=== PATIENT | male | born 1970 | race Caucasian/White ===

== ENCOUNTER 2017-11-08 12:44 | Emergency (ER) | payer MEDICAID ==
[~2017-11-08] VITALS: Ht 170.2 cm; Wt 87.1 kg
[2017-11-08 13:15] VITALS: BP 149/95
--- NOTE | 2017-11-08 13:24 | NUR ---
PATIENT PRESENTS TO ED WITH C/O LT SIDED /LT UPPER/LOWER EXTREMITIES BURNING SENSATION . PT STATES HE CAN'T FEEL ON HIS LEFT FLANK WHEN TAKING A HOT SHOWER. ALSO C/O OF RT 4TH AND 5 TH DIGIT NUMBNESS;DENIES ANY DIZZINESS/ GRIMALDO;DENIES ANY MEDICAL HX;DENIES N/V/D; SKIN IS PINK/WARM/DRY; AAOX4 WITH EVEN AND STEADY GAIT; LUNGS CLEAR BL; HR EVEN AND REGULAR; PT DENIES ANY FEVER, CP, SOB, OR COUGH AT THIS TIME; PATIENT STATES PAIN OF 8/10 AT THIS TIME; PATIENT POSITIONED FOR COMFORT;ER MD MADE AWARE OF PT STATUS.
[2017-11-08 14:31] LABS: BILIRUBIN,URINE NEGATIVE (NEGATIVE); BLOOD, URINE NEGATIVE (NEGATIVE); LEUKOCYTE ESTERASE ,URINE NEGATIVE (NEGATIVE); NITRITE, URINE NEGATIVE (NEGATIVE); UGLUCOSE NEGATIVE (NEGATIVE)
[2017-11-08 14:36] LABS: APPEARANCE,URINE CLEAR (CLEAR); COLOR,URINE STRAW (YELLOW)
[2017-11-08 14:37] LABS: BARBITURATE, URINE NEG. ng/ml (NEG <=200); BENZODIAZEPINE, URINE NEG. ng/mL (NEG <=200); CANNABINOID, URINE NEG. ng/mL (NEG <=50); COCAINE, URINE NEG. ng/mL (NEG <=300); OPIATE, URINE NEG. ng/mL (NEG <=2000); PHENCYCLIDINE SCREEN,URINE NEG. ng/mL (NEG <=25)
[2017-11-08 14:37] LABS: BASOPHILS # (AUTO) 0.3 K/uL (0.00-0.22); EOSINOPHILS # (AUTO) 0.2 K/uL (0-0.4); HEMATOCRIT 48.6 % (36-52); HEMOGLOBIN 16.5 g/dL (12.0-18.0); LYMPHOCYTES # (AUTO) 1.4 K/uL (2.0-11.5); MEAN CORPUSCULAR HEMOGLOBIN 30 pg (27-31); MEAN CORPUSCULAR HGB CONC 34 g/dL (33-37); MEAN CORPUSCULAR VOLUME 87 fL (80-94); MONOCYTES # (AUTO) 0.8 K/uL (0.8-1.0); NEUTROPHILS # (AUTO) 6.7 K/uL (1.8-7.7); PLATELET COUNT (AUTO) 248 K/uL (140-450); RED BLOOD CELL COUNT(AUTO) 5.57 MIL/uL (4.20-6.10); WHITE BLOOD COUNT (AUTO) 9.4 K/uL (4.8-10.8)
[2017-11-08 14:53] LABS: ANION GAP 13.3 (8-16); CARBON DIOXIDE 27.7 mmol/L (21-32); CREATININE 0.9 mg/dL (0.7-1.3)
[2017-11-08 15:00] LABS: ALBUMIN 3.9 g/dL (3.4-5.0); TOTAL BILIRUBIN 0.2 mg/dL (0.0-1.0)
--- NOTE | 2017-11-08 15:09 | NUR ---
OPTICAL ASSISTANT EVALUATING PT.
[2017-11-08 15:41] VITALS: BP 149/95
--- NOTE | 2017-11-08 15:41 | NUR ---
PT DISCHARGED BY DR CONTRERAS.
== END 2017-11-08 15:41 | disposition home or self-care (01) ==
LOC: MED 12:44
DX: R20.2 Paresthesia of skin (principal)
CPT/HCPCS: 36415; 70450; 71045; 80053; 80305; 81003; 85025; 99285

== ENCOUNTER 2019-12-19 00:15 | Inpatient (IN) | payer MEDICAID ==
[~2019-12-19] VITALS: Ht 172.7 cm; Wt 87.1 kg
[2019-12-19 00:15] VITALS: BP 141/86
--- NOTE | 2019-12-19 00:15 | NUR ---
49 YEAR OLD MALE COMPLAINS OF NONRADIATING CHEST PAIN 8/10 FOR 1 HOUR. PATIENT ALSO STATES SHORTNESS OF BREATHE. LUNGS CTABL, BREATHING EVEN AND UNLABORED, RR 20 SPO2 99%. PATIENT AOX4, SKIN WARM AND DRY. PATIENT PLACED ON MONITOR, ERMD MADE AWARE OF PT STATUS. BED IN LOWEST POSITION, LOCKED, BED RAIL UPX1. HR 85, BP 141/86. PMH - DENIES ALLERGIES - NKA
--- NOTE | 2019-12-19 00:18 | NUR ---
PT TAKEN TO BED 8
--- NOTE | 2019-12-19 00:19 | NUR ---
EMT AT BEDSIDE PERFORMING EKG
--- NOTE | 2019-12-19 00:20 | NUR ---
EKG PERFORMED AT BEDSIDE
--- NOTE | 2019-12-19 00:31 | NUR ---
Dr. Nevarez examining patient.
[2019-12-19] MEDS ORDERED: MORPHINE SULFATE 4 MG/ML SYR IVP ONE (00:35)
[2019-12-19] MEDS ORDERED: NITROGLYCERIN 2% 1 GM PKT TP ONE (00:35)
[2019-12-19] MEDS ORDERED: ASPIRIN 325 MG TAB PO ONE (00:35)
--- NOTE | 2019-12-19 00:47 | NUR ---
STAT LABS DRAWN AND GIVEN TO CELL BUILDER.
[2019-12-19 00:54] LABS: BASOPHILS # (AUTO) 0.1 K/uL (0.00-0.22); BASOPHILS % (AUTO) 1.5 % (0.0-2.0); EOSINOPHILS # (AUTO) 0.3 K/uL (0-0.4); EOSINOPHILS % (AUTO) 3.6 % (0.0-4.0); HEMATOCRIT 46.6 % (36-52); LYMPHOCYTES # (AUTO) 2.1 K/uL (2.0-11.5); LYMPHOCYTES % (AUTO) 26.1 % (20.5-51.1); MEAN CORPUSCULAR HEMOGLOBIN 31 pg (27-31); MEAN CORPUSCULAR HGB CONC 34 g/dL (33-37); MONOCYTES # (AUTO) 0.9 K/uL (0.8-1.0); MONOCYTES % (AUTO) 10.6 % (1.7-9.3); NEUTROPHILS # (AUTO) 4.7 K/uL (1.8-7.7); NEUTROPHILS % (AUTO) 58.2 % (42.2-75.2); PLATELET COUNT (AUTO) 225 K/uL (140-450); RED BLOOD CELL COUNT(AUTO) 5.24 MIL/uL (4.20-6.10); WHITE BLOOD COUNT (AUTO) 8.1 K/uL (4.8-10.8)
--- NOTE | 2019-12-19 00:56 | NUR ---
X-Ray at bedside.
[2019-12-19 01:11] LABS: ALBUMIN 3.7 g/dL (3.4-5.0); ANION GAP 11.7 (8-16); CREATININE 1.1 mg/dL (0.6-1.3); POTASSIUM 3.7 mmol/L (3.5-5.1); TOTAL BILIRUBIN 0.4 mg/dL (0.0-1.0)
[2019-12-19 01:13] LABS: CHOL/HDL RATIO 3.4 (1-4.5)
[2019-12-19 01:25] LABS: CREATINE KINASE MB 1.8 ng/mL (0-3.6)
--- NOTE | 2019-12-19 01:30 | NUR ---
PATIENT ALERT AND AWAKE, BREATHING EVEN AND UNLABORED
[2019-12-19] MEDS ORDERED: ASPI-1206 PO (01:56)
[2019-12-19] MEDS ORDERED: NACL 0.9% 1,000 ML IV SCH ×2 (01:56→02:45)
[2019-12-19] MEDS ORDERED: ACETAMINOPHEN 325 MG TAB PO PRN ×2 (02:00→02:45)
[2019-12-19] MEDS ORDERED: HYDROcodone/APAP 7.5/325 MG 1 TAB PO PRN ×2 (02:00→02:45)
[2019-12-19] MEDS ORDERED: NITROGLYCERIN 0.4 MG TAB SL PRN ×2 (02:00→02:45)
[2019-12-19] MEDS ORDERED: ZOLPIDEM 5 MG TAB PO PRN ×2 (02:00→02:45)
[2019-12-19] MEDS ORDERED: ONDANSETRON 4 MG/2 ML VIAL IVP PRN ×2 (02:00→02:45)
[2019-12-19 02:41] LABS: PROTHROMBIN TIME 10.2 secs (10.8-13.4)
[2019-12-19 02:45] VITALS: BP 120/68
--- NOTE | 2019-12-19 02:45 | NUR ---
Admitted from ER TO TELEMETRY UNIT, with chief complaint of CHEST PAIN, 49 y/o ,Male, Cooperative, AWAKE, A/OX4. RESPIRATION EVEN AND UNLABORED. IV SALINE LOCK AT THE RIGHT AC G20, PATENT AND INTACT. PATIENT STATED CHEST PAIN IS LIKE HEAVY PRESSURE ON HIS LEFT CHEST RADIATING TO HIS LEFT SHOULDER, 8/10, YESTERDAY MORNING. WAS MEDICATED IN ER WITH MORPHINE, ASA AND NITRO PATCH. CHEST PAIN AT THIS TIME IS 1/10, BUT GOES UP TO 6/10 WHEN HE BREATH DEEPLY. WILL FOLLOW UP WITH MD ORDERS AND GIVE PAIN MEDICATION ORDERED. PATIENT IS AMBULATORY AND INDEPENDENT. HEAD TO TOE ASSESSMENT DONE WITH CHARGE NURSE DEEPIKA, SKIN IS INTACT. ON TELE MONITORING, PT HR IS 76, SINUS RHYTHM WITH BUNDLE BRUNCH BLOCK. oriented to call light, bed, phone,television, bathroom, smoking policy,visiting hours, procedures, ID bracelet on. Belongings list checked.
--- NOTE | 2019-12-19 02:50 | NUR ---
Patient will be admitted to care of DR BARBA. Admited to TELE. Will go to room 112A. Belongings list completed. Report to JOHNATHAN HUTCHISON.
[2019-12-19 02:58] LABS: FREE T4 (FREE THYROXINE) 0.96 ng/dL (0.76-1.46); MAGNESIUM 2.1 mg/dL (1.8-2.4); PHOSPHORUS 2.8 mg/dL (2.5-4.9); THYROID STIMULATING HORMONE 4.77 uIU/mL (0.34-3.74)
--- NOTE | 2019-12-19 03:00 | NUR ---
URINAL GIVEN, INSTRUCTED PATIENT WHEN HE VOIDED TO CALL NURSE FOR COLLECTION OF URINE SPECIMEN TO BE SENT TO LAB .VERBALIZED UNDERSTANDING.
[2019-12-19 04:00] VITALS: BP 105/69
--- NOTE | 2019-12-19 04:00 | NUR ---
DR. BALDWIN SPOKE WITH PATIENT, ANSWERS ALL PATIENT'S QUESTIONS. PATIENT DENIES CHEST PAIN AT THIS TIME 0.
--- NOTE | 2019-12-19 07:05 | NUR ---
CONDITION REMAIN STABLE. ENDORSED TO AM NURSE FOR COLLECTION OF UA FOR DRUG SCREEN AND CONTINUITY OF CARE.
--- NOTE | 2019-12-19 07:18 | NUR ---
RECEIVED REPORT FROM CHAIN MAKER NURSE. PT IS AWAKE, ALERT, AND SITTING UP IN BED. PATIENT SHOWS NO SIGNS OF DISTRESS WITH CLEAR EVEN UNLABORED RESPIRATIONS. IV IS PATENT, INTACT, AND ASYMPTOMATIC WITH FLUIDS INFUSING PER ORDER. SKIN IS WARM DRY AND INTACT. SAFETY MEASURES IN PLACE, CALL LIGHT WITHIN REACH, AND WILL CONTINUE TO MONITOR.
--- NOTE | 2019-12-19 07:44 | NUR ---
JAMESON AVILA AND THE RESIDENT DOCTORS MADE ROUNDS
[2019-12-19 08:00] VITALS: BP 102/66
[2019-12-19] MEDS ORDERED: CRUSHER, PILL MC ONE (08:12)
--- NOTE | 2019-12-19 08:17 | NUR ---
GIVEN MORNING MEDICATIONS PO. HR IS 64. HEPARIN SUBQ IN THE ABDOMEN. PLATELET IS 225. PATIENT TOLERATED WELL. GIVEN MEDICATION EDUCATION. WILL CONTINUE TO MONITOR.
--- NOTE | 2019-12-19 08:45 | NUR ---
PATIENT HAS BEEN SCREENED AND CATEGORIZED MODERATE NUTRITION RISK. PATIENT WILL BE SEEN WITHIN 3-5 DAYS OF ADMISSION. 12/21/19 12/23/[address]
[2019-12-19] MEDS ORDERED: ASPIRIN 81 MG TAB.CHEW PO SCH ×2 (09:00)
[2019-12-19] MEDS ORDERED: DOCUSATE SODIUM 100 MG GELCAP PO SCH ×2 (09:00)
[2019-12-19] MEDS ORDERED: LISINOPRIL 5 MG TAB PO SCH ×2 (09:00)
[2019-12-19] MEDS ORDERED: METOPROLOL 25 MG TAB PO SCH ×2 (09:00)
--- NOTE | 2019-12-19 09:26 | NUR ---
MOVED PATIENT FROM 112A BED TO 119B BED
--- NOTE | 2019-12-19 10:11 | NUR ---
URINE SAMPLE COLLECTED
--- NOTE | 2019-12-19 10:28 | NUR ---
PATIENT C/O PRESSURE CHEST PAIN OF 5/10 BUT IT GETS WORSE, 7-8/10 WHEN HE DEEP BREATHES. PATIENT STATED IT DOESN'T RADIATE ONLY IN THE MIDDLE CHEST. WILL LET RESIDENT KNOW
--- NOTE | 2019-12-19 11:21 | NUR ---
GIVEN ORANGE JUICE. PATIENT STATED HE DOES NOT FEEL HUNGRY. TOLD PATIENT IT IS ALMOST LUNCH TIME.
[2019-12-19 11:50] VITALS: BP 107/65
--- NOTE | 2019-12-19 12:23 | NUR ---
PATIENT IS EATING LUNCH AT THIS TIME. NO SIGNS OF DISTRESS NOTED. DENIES CHEST PAIN. WILL CONTINUE TO MONITOR
--- NOTE | 2019-12-19 13:25 | NUR ---
PATIENT IS TALKING TO FAMILY MEMBER ON THE PHONE
--- NOTE | 2019-12-19 14:03 | NUR ---
PATIENT IS SLEEPING AT THIS TIME. NO SIGNS OF DISTRESS NOTED. BED IN LOW POSITION. CALL LIGHT IS WITHIN REACH.W WILL CONTINUE TO MONITOR
--- NOTE | 2019-12-19 14:38 | NUR ---
GIVEN NITRO SL FOR CHEST PAIN. WILL RECHECK IN 5 MINUTES
--- NOTE | 2019-12-19 14:44 | NUR ---
PATIENT STILL C/O OF CHEST PAIN. PATIENT STATED THAT THE WOOD GRINDER OPERATOR IS PUSHING TOO HARD ON HIS CHEST, THAT IS WHY IT IS HURTING. DR. PERDOMO IS AWARE. NEW ORDER OF TORADOL RECEIVED. WILL CARRY ON ORDER.
--- NOTE | 2019-12-19 14:58 | NUR ---
GIVEN TORADOL FOR 5/10 CHEST PAIN PER MD ORDER. WILL REASSESS FOR PAIN
[2019-12-19] MEDS ORDERED: KETOROLAC 15 MG/ML VIAL IVP SCH (15:00)
--- NOTE | 2019-12-19 15:25 | NUR ---
PTS CALLED AND ASKED FOR AN UPDATE AND DROPPED OFF HIS PHONE. PT VOCALIZED HIS CONCERNS ABOUT ECCHO AND WANTS RESULTS TO BE FAXED TO ANOTHER HEALTH CARE PROVIDER. PT ALSO SAID THAT HE FORGOT TO MENTION HIS SYNCOPAL EPISODES TO . I SPOKE TO DR. PERDOMO REGARDING HIS CONCERNS AND MADE HER AWARE.
[2019-12-19 15:46] LABS: APPEARANCE,URINE SL CLOUDY (CLEAR); BILIRUBIN,URINE NEGATIVE (NEGATIVE); BLOOD, URINE NEGATIVE (NEGATIVE); COLOR,URINE DARK YELLOW (YELLOW); LEUKOCYTE ESTERASE ,URINE NEGATIVE (NEGATIVE); NITRITE, URINE NEGATIVE (NEGATIVE); PH,URINE 5.5 (5.0-9.0); UGLUCOSE NEGATIVE (NEGATIVE)
--- NOTE | 2019-12-19 15:53 | NUR ---
PAIN REASSESSMENT 1/10 CHEST PAIN. TOLERABLE PAIN
[2019-12-19 16:00] VITALS: BP 104/65
[2019-12-19] MEDS ORDERED: IBUP-2213 PO (16:00)
--- NOTE | 2019-12-19 16:30 | NUR ---
PATIENT SIGNED AUTHORIZATION RELEASE OF MEDICAL RECORDS.
--- NOTE | 2019-12-19 17:45 | NUR ---
FAXED DISCHARGE SUMMARY AND CONSULTATION TO [facility]. WILL FAX ECHO RESULT ONCE IT'S AVAILABLE VIA SOCIAL SERV[facility]. DR. PERDOMO AWARE.
--- NOTE | 2019-12-19 17:45 | NUR ---
GIVEN DISCHARGE INSTRUCTIONS TO THE PATIENT. Please follow up with your PCP Dr Glen Haines within 4 days of discharge. Your PCPs office at [facility] has agreed for phone consult only on 2 PM. Make sure you have your phone on and available to receive the phone consult for your doctor. Currently the clinic is limiting direct patient consult due to [place] virus pandemic going on. We have faxed records to [facility]. Your chest pain is likely due to a pulled muscle. You have been seen by the chuck wagon cook who agrees that the chest pain is likely non cardiac and you are stable to go home. Follow up with your PCP for outpatient cardiac stress test and cardiology referral. Take Motrin as prescribed with meals for pain control. Motrin can cause gastritis, stomach upset if taken on empty stomach or taken excess. Please call 911 or visit nearest ER if you develop worsening chest pain, shortness of breath, palpitations or any life-threatening symptoms. PATIENT VERBALIZED UNDERSTANDING. PATIENT SIGNED DISCHARGE PAPERWORK. NO FURTHER QUESTIONS
--- NOTE | 2019-12-19 17:55 | NUR ---
PATIENT REFUSED BOTH PNA AND FLU VACCINES.
--- NOTE | 2019-12-19 17:58 | NUR ---
DISCONTINUED IV AND REMOVED ID BAND. PATIENT IS CHANGING TO HOME CLOTHES
--- NOTE | 2019-12-19 17:59 | NUR ---
FAXED PAPER SUCCESSFULLY. [facility] WILL FAX THE RESULT OF ECHO.
--- NOTE | 2019-12-19 18:00 | NUR ---
DISCHARGED PATIENT ON FOOT. KIANNA PEÑA ACCOMPANIED THE PATIENT. PATIENT DENIES CHEST PAIN. NO SOB. PATIENT IS IN STABLE CONDITION.
[2019-12-19] MEDS ORDERED: ATORVASTATIN 20 MG TAB PO SCH ×2 (21:00)
--- NOTE | 2019-12-20 15:53 | NUR ---
ECHO RESULTS FAXED TO [facility] AT [phone]
== END 2019-12-19 18:00 | disposition home or self-care (01) | DRG 203 ==
LOC: MED 00:15 → MTU 02:10 → MED 02:43 → MTU 09:56
PROVIDERS: ADMIT General Practice; ATTEND General Practice
DX: M94.0 Chondrocostal junction syndrome [Tietze] (principal); E02 Subclinical iodine-deficiency hypothyroidism; E66.3 Overweight; E78.00 Pure hypercholesterolemia, unspecified; R73.9 Hyperglycemia, unspecified; E78.5 Hyperlipidemia, unspecified; Z68.29 Body mass index [BMI] 29.0-29.9, adult; Z83.3 Family history of diabetes mellitus; Z71.3 Dietary counseling and surveillance
CPT/HCPCS: 36415; 71045; 80053; 81003; 82150; 82550; 82553; 83036; 83690; 83735; 83880; 84100; 84439; 84443; 84484; 85025; 85379; 85610; 85730; 87081; 93005; 96374; 99285; J1644; J1885; J2270; J7030; Q0092

== ENCOUNTER 2020-10-25 13:37 | Emergency (ER) | payer SELFPAY ==
[~2020-10-25] VITALS: Ht 170.2 cm; Wt 88.5 kg
[~2020-10-25 13:37] MED LIST: IBUP-2213 PO
--- NOTE | 2020-10-25 13:37 | NUR ---
PT W/C ASSISTED TO BED 8.
[2020-10-25 13:39] VITALS: BP 169/80
--- NOTE | 2020-10-25 13:52 | NUR ---
lab at bed bedside
--- NOTE | 2020-10-25 13:53 | NUR ---
50 Y/O MALE C/O SYNCOPE EPISODES STARTED YESTERDAY. PT'S CLAIMS THAT PT HAS BEEN ACTING WEAK SINCE YESTERDAY. PT STATES HAD MRI DONE AND IT SHOWED A "PINCHED NERVE" THAT WAS RESTRICTING BLOOD FLOW TO THE BRAIN. PT THEN STATES HE WAS PLANNING ON SEEING A NEUROLOGIST BUT BECAME SYMPTOMATIC BEFORE HE WAS ABLE TO GET IN. EQUAL STRENGTH BILATERAL UPPER AND LOWER EXTREMETIES. SYMMETRIC SMILE AND CLOSING OF EYES. DENIES SOB/N/N. PT A&O X4, LAYING IN BED, BED IN LOWEST POSITION, BRAKES LOCKED WITH SIDE RAIL UP. Hx CARDIAC CATH DONE 05/2020 NO KNA, NO MEDS
--- NOTE | 2020-10-25 13:55 | NUR ---
CHAIM EMT AT PT BEDSIDE FOR EKG
--- NOTE | 2020-10-25 14:07 | NUR ---
PHU GARRISON SAMPLE COLLECTED AND WALKED TO LAB
[2020-10-25 14:08] LABS: BASOPHILS # (AUTO) 0.1 K/uL (0.00-0.22); BASOPHILS % (AUTO) 0.6 % (0.0-2.0); EOSINOPHILS # (AUTO) 0.1 K/uL (0-0.4); EOSINOPHILS % (AUTO) 1.3 % (0.0-4.0); HEMATOCRIT 49.3 % (36-52); HEMOGLOBIN 16.9 g/dL (12.0-18.0); LYMPHOCYTES # (AUTO) 1.9 K/uL (2.0-11.5); LYMPHOCYTES % (AUTO) 20.9 % (20.5-51.1); MEAN CORPUSCULAR HEMOGLOBIN 31 pg (27-31); MEAN CORPUSCULAR HGB CONC 34 g/dL (33-37); MEAN CORPUSCULAR VOLUME 88.7 fL (80-94); MONOCYTES # (AUTO) 0.5 K/uL (0.8-1.0); MONOCYTES % (AUTO) 5.7 % (1.7-9.3); NEUTROPHILS # (AUTO) 6.5 K/uL (1.8-7.7); NEUTROPHILS % (AUTO) 71.5 % (42.2-75.2); PLATELET COUNT (AUTO) 242 K/uL (140-450); RED BLOOD CELL COUNT(AUTO) 5.56 MIL/uL (4.20-6.10); WHITE BLOOD COUNT (AUTO) 9.2 K/uL (4.8-10.8)
--- NOTE | 2020-10-25 14:11 | NUR ---
URINE SAMPLE COLLECTED AND WALKED TO LAB.
--- NOTE | 2020-10-25 14:18 | NUR ---
PT TAKEN TO CT VIA ADELINE
[2020-10-25 14:23] LABS: APPEARANCE,URINE SL CLOUDY (CLEAR); BILIRUBIN,URINE NEGATIVE (NEGATIVE); BLOOD, URINE NEGATIVE (NEGATIVE); COLOR,URINE YELLOW (YELLOW); LEUKOCYTE ESTERASE ,URINE NEGATIVE (NEGATIVE); NITRITE, URINE NEGATIVE (NEGATIVE); UGLUCOSE NEGATIVE (NEGATIVE)
[2020-10-25 14:28] LABS: ANION GAP 12.8 (8-16); CARBON DIOXIDE 27.1 mmol/L (21-32); CREATININE 1.2 mg/dL (0.6-1.3); POTASSIUM 3.9 mmol/L (3.5-5.1); TOTAL BILIRUBIN 0.5 mg/dL (0.0-1.0)
--- NOTE | 2020-10-25 14:32 | NUR ---
PT BACK FROM CT.
--- NOTE | 2020-10-25 14:38 | NUR ---
DR RUELAS AT PT BEDSIDE FOR FURTHER EVALUATION
[2020-10-25] MEDS ORDERED: diazePAM 5 MG TAB PO ONE (14:45)
--- NOTE | 2020-10-25 15:01 | NUR ---
PT RESTING IN BED, BREATHING REGULAR AND UNLABORED. BED IN LOWEST POSITION
[2020-10-25 15:43] VITALS: BP 169/80
--- NOTE | 2020-10-25 15:44 | NUR ---
Patient discharged with v/s stable. Written and verbal after care instructions given and explained. Patient alert, oriented and verbalized understanding of instructions. Ambulatory with steady gait. All questions addressed prior to discharge. ID band removed. Patient advised to follow up with PMD. Rx of VALIUM 5MG TAB PO [id number] given. Patient educated on indication of medication including possible reaction and side effects. Opportunity to ask questions provided and answered.
== END 2020-10-25 15:44 | disposition home or self-care (01) ==
LOC: MED 13:37
DX: R42 Dizziness and giddiness (principal); R55 Syncope and collapse; Z79.899 Other long term (current) drug therapy; Z98.890 Other specified postprocedural states; Z20.828 Contact with and (suspected) exposure to other viral communicable diseases
CPT/HCPCS: 36415; 70450; 71045; 80053; 81003; 83605; 83880; 84484; 85025; 87040; 87086; 93005; 99285

== ENCOUNTER 2022-12-22 22:46 | Inpatient (IN) | payer OTHER ==
[~2022-12-22] VITALS: Ht 165.1 cm; Wt 81.6 kg
[2022-12-22 22:52] VITALS: BP 146/100
--- NOTE | 2022-12-22 22:57 | NUR ---
PT TO BED
--- NOTE | 2022-12-22 22:59 | NUR ---
PT TO BED 09.
[2022-12-22] MEDS ORDERED: ASPIRIN 325 MG TAB PO ONE (23:05)
[2022-12-22 23:21] LABS: BASOPHILS # (AUTO) 0.1 K/uL (0.00-0.22); BASOPHILS % (AUTO) 0.7 % (0.0-2.0); EOSINOPHILS # (AUTO) 0.3 K/uL (0-0.4); EOSINOPHILS % (AUTO) 2.8 % (0.0-4.0); HEMATOCRIT 47.4 % (36-52); HEMOGLOBIN 16.3 g/dL (12.0-18.0); LYMPHOCYTES # (AUTO) 3.2 K/uL (2.0-11.5); LYMPHOCYTES % (AUTO) 32.8 % (20.5-51.1); MEAN CORPUSCULAR HEMOGLOBIN 30 pg (27-31); MEAN CORPUSCULAR HGB CONC 34 g/dL (33-37); MEAN CORPUSCULAR VOLUME 87.3 fL (80-94); MONOCYTES # (AUTO) 0.9 K/uL (0.8-1.0); MONOCYTES % (AUTO) 9.2 % (1.7-9.3); NEUTROPHILS # (AUTO) 5.4 K/uL (1.8-7.7); NEUTROPHILS % (AUTO) 54.5 % (42.2-75.2); PLATELET COUNT (AUTO) 238 K/uL (140-450); RED BLOOD CELL COUNT(AUTO) 5.43 MIL/uL (4.20-6.10); RED CELL DISTRIBUTION WIDTH 13.4 % (11.6-13.7); WHITE BLOOD COUNT (AUTO) 9.9 K/uL (4.8-10.8)
--- NOTE | 2022-12-22 23:32 | NUR ---
X-Ray at bedside.
[2022-12-22 23:45] LABS: ALBUMIN 3.7 g/dL (3.4-5.0); ANION GAP 13.2 (8-16); CARBON DIOXIDE 26.5 mmol/L (21-32); CREATININE 1.1 mg/dL (0.6-1.3); POTASSIUM 3.7 mmol/L (3.5-5.1); TOTAL BILIRUBIN 0.2 mg/dL (0.0-1.0)
[2022-12-23] MEDS ORDERED: NACL 0.9% 1,000 ML IV ONE (00:55)
--- NOTE | 2022-12-23 01:30 | NUR ---
pt came to ED with c/o difficulty breathing and chest pain. at this time, denies any chest pain. pt hx pacemaker, HTN, and cervical surgery. NKA.
[2022-12-23] MEDS ORDERED: POTASSIUM CHLORIDE 10 MEQ TABER PO PRN (02:05)
[2022-12-23] MEDS ORDERED: MORPHINE SULFATE 4 MG/ML SYR IVP PRN (02:05)
[2022-12-23] MEDS ORDERED: MAGNESIUM OXIDE 400 MG TAB PO PRN (02:05)
[2022-12-23] MEDS ORDERED: KCL 20 MEQ IN 100 mL PREMIX 200 ML IV PRN (02:05)
[2022-12-23] MEDS ORDERED: ACETAMINOPHEN 325 MG TAB PO PRN (02:05)
[2022-12-23] MEDS ORDERED: MAG SULF 2000 MG/WATER PREMIX 50 ML IV PRN (02:05)
[2022-12-23] MEDS ORDERED: HYDROcodone/APAP 5/325 MG 1 TAB TAB PO PRN (02:05)
--- NOTE | 2022-12-23 04:30 | NUR ---
Resting comfortably, denies any chest pain at this time
--- NOTE | 2022-12-23 06:21 | NUR ---
Pt resting at this time no c/o pain or discomfort.
--- NOTE | 2022-12-23 07:30 | NUR ---
RECEIVED REPORT FROM ULICES HUTCHISON. ASSUMED CARE AT THIS TIME, PATIENT LYING IN BED ON BEDSIDE SIZING MACHINE TENDER. PATIENT DENIES PAIN OR DISCOMFORT AT THIS TIME, ALL NEEDS MET AT THIS TIME.
--- NOTE | 2022-12-23 08:50 | NUR ---
DR. SAL EVALUATING PATIENT BEDSIDE
--- NOTE | 2022-12-23 08:54 | NUR ---
Patient will be admitted to care of DR. SAL. Admited to TELE. Will go to room 105A. Belongings list completed. Report to HELEN KIANNA.
[2022-12-23] MEDS ORDERED: FUROSEMIDE 20 MG/2 ML VIAL IVP SCH (09:00)
[2022-12-23] MEDS ORDERED: ASPIRIN 81 MG TAB.CHEW PO SCH (09:00)
[2022-12-23] MEDS: ENOXAPARIN 40 MG/0.4 ML SYR SUBQ SCH (09:00)
[2022-12-23] MEDS ORDERED: ATORVASTATIN 20 MG TAB PO SCH (09:00)
--- NOTE | 2022-12-23 09:00 | NUR ---
RECEIVED PATIENT FROM ED NURSE. PATIENT WAS SEEN AND ASSESSED AWAKE AND ABLE TO ANSWER ASSESSMENT QUESTIONS. PLAN FOR CONTINUITY OF CARE ESTABLISHED.
--- NOTE | 2022-12-23 09:14 | NUR ---
PATIENT HAS BEEN SCREENED AND CATEGORIZED MODERATE NUTRITION RISK. PATIENT WILL BE SEEN WITHIN 3-5 DAYS OF ADMISSION. REVIEWED BY SERGEY STEELE RD Addendum: 12/23/22 at [address] [facility]NS REFERRAL HAS BEEN RECEIVED FOR 2-13 LB WEIGHT LOSS. PATIENT HAS BEEN RE-SCREENED HIGH RISK AND WILL BE SEEN WITHIN 1-2 DAYS OF RECEIVING THE [facility]NS REFERRAL. 12/24/22-12/25/22
[2022-12-23 12:00] VITALS: BP 107/67
[2022-12-23] MEDS ORDERED: MORPHINE SULFATE 2 MG/ML SYR IVP PRN (12:00)
--- NOTE | 2022-12-23 15:30 | NUR ---
PATIENT SPOUSE PRESENT. EXPRESSES THAT HER (PATIENT) NEEDS MEDICATION FOR PAIN. PATIENT CLARIFIES HIS CURRENT STATE AND SITUATION. INFORMATION GIVEN BY PATIENT CONTRIBUTES IN ESTABLISHING MUCH MORE PRECISE PLAN OF CARE FOR PATIENT.
--- NOTE | 2022-12-23 15:36 | NUR ---
12/23/22 RD INITIAL ASSESSMENT COMPLETED PLEASE REFER TO NUTRITION ASSESSMENT UNDER CARE ACTIVITY FOR ESTIMATED NUTRITIONAL NEEDS. 1. CONTINUE CARDIAC DIET TOLERATED 2. PROVIDED NUTRITION EDUCATION AND HANDOUTS ON GENERAL HEART-HEALTHY DIET 3. MONITOR PO INTAKE AND NUTRITION RELATED LAB VALUES 4. RD TO FOLLOW-UP 7 DAYS, LOW RISK REVIEWED BY SERGEY STEELE RD
[2022-12-23 16:00] VITALS: BP 127/74
--- NOTE | 2022-12-23 19:35 | NUR ---
ENDORSED PATIENT TO PLANT SCIENTIST NURSE FOR CONTINUITY OF CARE.
[2022-12-23 20:00] VITALS: BP 107/63
--- NOTE | 2022-12-23 20:00 | NUR ---
PT DENIES OF ANY PAIN.
[2022-12-24] VITALS: BP 127/87
--- NOTE | 2022-12-24 00:15 | NUR ---
PT IS ASLEEP
[2022-12-24 04:00] VITALS: BP 127/89
[2022-12-24 05:49] LABS: BASOPHILS % (AUTO) 0.4 % (0.0-2.0); EOSINOPHILS # (AUTO) 0.2 K/uL (0-0.4); EOSINOPHILS % (AUTO) 2.5 % (0.0-4.0); HEMATOCRIT 46.6 % (36-52); HEMOGLOBIN 16.1 g/dL (12.0-18.0); LYMPHOCYTES # (AUTO) 2.4 K/uL (2.0-11.5); LYMPHOCYTES % (AUTO) 26.1 % (20.5-51.1); MEAN CORPUSCULAR HEMOGLOBIN 30 pg (27-31); MEAN CORPUSCULAR HGB CONC 35 g/dL (33-37); MEAN CORPUSCULAR VOLUME 87.4 fL (80-94); MONOCYTES # (AUTO) 0.7 K/uL (0.8-1.0); MONOCYTES % (AUTO) 8.2 % (1.7-9.3); NEUTROPHILS # (AUTO) 5.7 K/uL (1.8-7.7); NEUTROPHILS % (AUTO) 62.8 % (42.2-75.2); PLATELET COUNT (AUTO) 228 K/uL (140-450); RED BLOOD CELL COUNT(AUTO) 5.34 MIL/uL (4.20-6.10); RED CELL DISTRIBUTION WIDTH 13.2 % (11.6-13.7)
[2022-12-24 06:36] LABS: ALBUMIN 3.3 g/dL (3.4-5.0); ANION GAP 10.6 (8-16); CARBON DIOXIDE 25.5 mmol/L (21-32); MAGNESIUM 2.1 mg/dL (1.8-2.4); POTASSIUM 4.1 mmol/L (3.5-5.1); TOTAL BILIRUBIN 0.5 mg/dL (0.0-1.0)
--- NOTE | 2022-12-24 07:34 | NUR ---
RECEIVED PATIENT FROM PM NURSE. PATIENT SEEN ON BED, AWAKE. PATIENT VERBALIZES NO PAIN FELT. CONTINUITY OF CARE INITIATED.
[2022-12-24 08:00] VITALS: BP 116/64
--- NOTE | 2022-12-24 08:20 | NUR ---
PLACED A CALL TO [employer] TO SCHEDULE TO PACEMAKER INTERROGATION, JOB TRACER TOOK PTS INFORMATION AND STATED THAT SHE WOULD NOTIFY THE TECH VEHICLE SERVICE AGENT.
[2022-12-24] MEDS: ENOXAPARIN 40 MG/0.4 ML SYR SUBQ SCH (09:00)
[2022-12-24] MEDS ORDERED: ACET-1182 PO (09:32)
--- NOTE | 2022-12-24 10:40 | NUR ---
PATIENT PACEMAKER INTERROGATION PERFORMED BY ABBOT EAGEL
--- NOTE | 2022-12-24 11:47 | NUR ---
JOSH PLANNING A 68 YEAR OLD MALE PATIENT ADMITTED 12/23/2022 FOR RIGHT SIDED NUMBNESS FOR 2 DAYS.MRI OF THE BRAIN WITHOUT CONTRAST REQUESTED.PATIENT TO BE TRANSPORTED TO [facility] BY [facility] WITH EMS. MRI FORM COMPLETED AND FAXED TO [facility] MRI DEPT.PRIMARY NURSE INFORMED THAT SCHEDULE IS AT 2.30PM. Addendum: 12/24/22 at 1409 by ISA COPPOLA CM ABOVE MESSAGE ENTERED BY ERROR.PLEASE DISREGARD
[2022-12-24 12:30] VITALS: BP 123/86
--- NOTE | 2022-12-24 12:45 | NUR ---
UPDATED PACEMAKER INTERROGATION RESULT TO TICKET MARKER
[2022-12-24 15:56] VITALS: BP 123/86
--- NOTE | 2022-12-24 16:00 | NUR ---
DC PLANNING ADMITTED A 52 YEAR OLD MALE PATIENT FOR LEFT SIDED CHEST PAIN WITH PALPITATIONS ON 12/23/2022.HAS HX OF HTN.AND PACEMAKER.TROPONIN LEVEL WNL.CARDIOLOGY CONSULT REQUESTED.PACEMEAKER INTERROGATION COMPLETED AND PACEMAKER IS FINE.FOR DISCHARGE TODAY.[facility] CM UPDATED OF PATIENT'S STATUS.
[2022-12-24 16:03] VITALS: BP 123/86
--- NOTE | 2022-12-25 12:08 | NUR ---
CALLED DR ANDERSON'S OFFICE LOCATED AT [facility] [facility] [place] [facility] [id number]. SPOKE WITH KELSIE WHO INFORMED ME PT ALREADY MADE FOLLOW UP APPOINTMENT FUNMILAYO 01/26/2023 AT 1230.
== END 2022-12-24 16:30 | disposition short-term general hospital (02) | DRG 203 ==
LOC: MED 22:46 → MTU 12-23 02:08 → OBSVTOIN 12-23 02:08 → MTU 12-23 08:00
PROVIDERS: ADMIT Internal Medicine; ATTEND Internal Medicine
PROC: 4B02XSZ Measurement of Cardiac Pacemaker, External Approach (ICD-10-PCS; principal; 2022-12-24)
DX: R07.89 Other chest pain (principal); I10 Essential (primary) hypertension; Z20.822 Contact with and (suspected) exposure to COVID-19; R00.0 Tachycardia, unspecified; Z95.0 Presence of cardiac pacemaker; Z79.899 Other long term (current) drug therapy; Z83.3 Family history of diabetes mellitus; Z82.49 Family history of ischemic heart disease and other diseases of the circulatory system
CPT/HCPCS: 36415; 71045; 72050; 80053; 83735; 83880; 84484; 85025; 87081; J1650; J1940; J2270; Q0092

== ENCOUNTER 2023-09-10 16:33 | Inpatient (IN) | payer OTHER ==
[~2023-09-10] VITALS: Ht 170.2 cm; Wt 87.1 kg
[2023-09-10] MEDS: NACL 0.9% 1,000 ML IV SCH (01:20)
[~2023-09-10 16:33] MED LIST changes: +ACET-1182 PO; -IBUP-2213 PO
[2023-09-10 17:32] VITALS: BP 122/73; PULSE 83; RESP 16; TEMP 99.6; O2SAT 97
[2023-09-10] MEDS ORDERED: NACL 0.9% 1,000 ML IV ONE (18:30)
[2023-09-10 19:20] LABS: BASOPHILS % (AUTO) 0.1 % (0.0-2.0); EOSINOPHILS # (AUTO) 0.1 K/uL (0-0.4); EOSINOPHILS % (AUTO) 0.5 % (0.0-4.0); HEMATOCRIT 51.2 % (36-52); HEMOGLOBIN 17.3 g/dL (12.0-18.0); LYMPHOCYTES # (AUTO) 0.4 K/uL (2.0-11.5); LYMPHOCYTES % (AUTO) 3.7 % (20.5-51.1); MEAN CORPUSCULAR HEMOGLOBIN 29 pg (27-31); MEAN CORPUSCULAR HGB CONC 34 g/dL (33-37); MONOCYTES # (AUTO) 0.3 K/uL (0.8-1.0); MONOCYTES % (AUTO) 2.6 % (1.7-9.3); NEUTROPHILS # (AUTO) 10.9 K/uL (1.8-7.7); NEUTROPHILS % (AUTO) 93.1 % (42.2-75.2); PLATELET COUNT (AUTO) 217 K/uL (140-450); RED BLOOD CELL COUNT(AUTO) 5.89 MIL/uL (4.20-6.10); RED CELL DISTRIBUTION WIDTH 13.1 % (11.6-13.7); WHITE BLOOD COUNT (AUTO) 11.7 K/uL (4.8-10.8)
[2023-09-10 19:27] LABS: ANION GAP 10.8 (8-16); CALCIUM 8.6 mg/dL (8.5-10.1); CARBON DIOXIDE 28.9 mmol/L (21-32); CREATININE 1.2 mg/dL (0.6-1.3); POTASSIUM 4.7 mmol/L (3.5-5.1)
[2023-09-10 19:31] LABS: INR 0.97 (0.8-1.2); PARTIAL THROMBOPLASTIN TIME 24.2 secs (22-35.6); PROTHROMBIN TIME 10.2 secs (10.8-13.4)
[2023-09-10 19:37] LABS: ALANINE AMINOTRANSFERASE 21 U/L (12-78); ALBUMIN 3.7 g/dL (3.4-5.0); ALKALINE PHOSPHATASE 67 U/L (50-136); AMYLASE 137 U/L (25-115); ASPARTATE AMINOTRANSFERASE 21 U/L (15-37); BILIRUBIN,DIRECT 0.1 mg/dL (0.0-0.3); LIPASE 144 U/L (16-77); TOTAL BILIRUBIN 0.5 mg/dL (0.0-1.0)
[2023-09-10] MEDS ORDERED: ONDANSETRON 4 MG/2 ML VIAL IVP ONE (20:30)
[2023-09-10] MEDS ORDERED: KETOROLAC 30 MG/ML VIAL IVP ONE (20:30)
[2023-09-10] MEDS ORDERED: ONDANSETRON 4 MG/2 ML VIAL IVP PRN (22:40)
[2023-09-10] MEDS ORDERED: ACETAMINOPHEN 325 MG TAB PO PRN (22:40)
[2023-09-10] MEDS ORDERED: MORPHINE SULFATE 2 MG/ML SYR IVP PRN (22:40)
[2023-09-10] MEDS ORDERED: KETOROLAC 30 MG/ML VIAL ONE (23:08)
[2023-09-11] MEDS: NACL 0.9% 1,000 ML IV SCH ×2 (06:40→10:25)
[2023-09-11] MEDS ORDERED: BACL10TA4 PO (06:51)
[2023-09-11] MEDS ORDERED: LISI-486 PO (06:51)
[2023-09-11 07:44] LABS: BASOPHILS % (AUTO) 0.2 % (0.0-2.0); EOSINOPHILS # (AUTO) 0.1 K/uL (0-0.4); EOSINOPHILS % (AUTO) 1.1 % (0.0-4.0); HEMATOCRIT 44.3 % (36-52); HEMOGLOBIN 15.1 g/dL (12.0-18.0); LYMPHOCYTES # (AUTO) 0.8 K/uL (2.0-11.5); LYMPHOCYTES % (AUTO) 12.1 % (20.5-51.1); MEAN CORPUSCULAR HEMOGLOBIN 30 pg (27-31); MEAN CORPUSCULAR HGB CONC 34 g/dL (33-37); MEAN CORPUSCULAR VOLUME 87.5 fL (80-94); MONOCYTES # (AUTO) 0.6 K/uL (0.8-1.0); MONOCYTES % (AUTO) 8.9 % (1.7-9.3); NEUTROPHILS # (AUTO) 4.9 K/uL (1.8-7.7); NEUTROPHILS % (AUTO) 77.7 % (42.2-75.2); PLATELET COUNT (AUTO) 190 K/uL (140-450); RED BLOOD CELL COUNT(AUTO) 5.06 MIL/uL (4.20-6.10); RED CELL DISTRIBUTION WIDTH 13.2 % (11.6-13.7); WHITE BLOOD COUNT (AUTO) 6.3 K/uL (4.8-10.8)
[2023-09-11 08:05] LABS: ALBUMIN 2.8 g/dL (3.4-5.0); ANION GAP 13.9 (8-16); CALCIUM 7.4 mg/dL (8.5-10.1); CARBON DIOXIDE 21.8 mmol/L (21-32); CREATININE 0.9 mg/dL (0.6-1.3); MAGNESIUM 1.8 mg/dL (1.8-2.4); POTASSIUM 3.7 mmol/L (3.5-5.1); TOTAL BILIRUBIN 0.6 mg/dL (0.0-1.0); TOTAL PROTEIN, SERUM 6.4 g/dL (6.4-8.2)
[2023-09-11 12:15] VITALS: BP 108/66; PULSE 66; RESP 18; TEMP 98.7; O2SAT 98
[2023-09-11 12:20] VITALS: PULSE 66; RESP 18; O2SAT 98
[2023-09-11 16:00] VITALS: BP 123/68; PULSE 70; RESP 18; TEMP 97.8; O2SAT 96
== END 2023-09-11 18:25 | disposition home or self-care (01) | DRG 282 ==
LOC: MED 16:33 → MMU 22:47 → MTU 09-11 11:34
PROVIDERS: ADMIT Hospitalist; ATTEND Hospitalist
DX: K85.10 Biliary acute pancreatitis without necrosis or infection (principal); D72.829 Elevated white blood cell count, unspecified; I10 Essential (primary) hypertension; Z83.3 Family history of diabetes mellitus; Z95.0 Presence of cardiac pacemaker
CPT/HCPCS: 36415; 71046; 76705; 80048; 80053; 80076; 82150; 83690; 83735; 83880; 84484; 85025; 85379; 85610; 85730; 87081; 93005; 96361; 96374; 96375; 99285; J1885; J2405

== ENCOUNTER 2024-06-23 11:43 | Emergency (ER) | payer OTHER ==
[~2024-06-23] VITALS: Ht 170.2 cm; Wt 87.1 kg
[~2024-06-23 11:43] MED LIST changes: +BACL10TA4 PO; +LISI-951 PO
[2024-06-23 12:04] VITALS: BP 144/79; PULSE 66; RESP 16; TEMP 97.6; O2SAT 98
[2024-06-23 12:54] VITALS: O2SAT 97
[2024-06-23 13:18] LABS: ANION GAP 12.4 (8-16); CALCIUM 8.4 mg/dL (8.5-10.1); CARBON DIOXIDE 25.6 mmol/L (21-32)
[2024-06-23 13:29] LABS: BASOPHILS % (AUTO) 0.7 % (0.0-2.0); EOSINOPHILS # (AUTO) 0.1 K/uL (0-0.4); EOSINOPHILS % (AUTO) 1.9 % (0.0-4.0); HEMATOCRIT 47.7 % (36-52); HEMOGLOBIN 16.2 g/dL (12.0-18.0); LYMPHOCYTES # (AUTO) 1.5 K/uL (2.0-11.5); LYMPHOCYTES % (AUTO) 23.6 % (20.5-51.1); MEAN CORPUSCULAR HEMOGLOBIN 30 pg (27-31); MEAN CORPUSCULAR HGB CONC 34 g/dL (33-37); MEAN CORPUSCULAR VOLUME 87.9 fL (80-94); MONOCYTES # (AUTO) 0.5 K/uL (0.8-1.0); MONOCYTES % (AUTO) 7.7 % (1.7-9.3); NEUTROPHILS # (AUTO) 4.1 K/uL (1.8-7.7); NEUTROPHILS % (AUTO) 66.1 % (42.2-75.2); PLATELET COUNT (AUTO) 226 K/uL (140-450); RED BLOOD CELL COUNT(AUTO) 5.43 MIL/uL (4.20-6.10); RED CELL DISTRIBUTION WIDTH 13.4 % (11.6-13.7); WHITE BLOOD COUNT (AUTO) 6.3 K/uL (4.8-10.8)
[2024-06-23 13:34] LABS: INR 0.95 (0.8-1.2); PARTIAL THROMBOPLASTIN TIME 27.7 secs (22-35.6)
[2024-06-23 15:44] VITALS: BP 138/81; PULSE 64; RESP 16; TEMP 97.6; O2SAT 97
== END 2024-06-23 15:53 | disposition home or self-care (01) ==
LOC: MED 11:43
DX: I10 Essential (primary) hypertension (principal); R07.89 Other chest pain; R51.9 Headache, unspecified; Z95.0 Presence of cardiac pacemaker; Z79.899 Other long term (current) drug therapy
CPT/HCPCS: 36415; 71045; 80048; 83880; 84484; 85025; 85610; 85730; 93005; 99285; Q0092